=== PATIENT | male | born 2000 | race Two or more races ===

== ENCOUNTER 2019-08-28 10:04 | Emergency (ER) | payer OTHER ==
[~2019-08-28] VITALS: Ht 175.3 cm; Wt 56.7 kg
[2019-08-28] MEDS ORDERED: Tetanus/Diptheria/Pertussis IM ONE (10:15)
[2019-08-28 10:18] VITALS: BP 115/76
--- NOTE | 2019-08-28 10:19 | Emergency Room Report ---
History of Present Illness General Chief Complaint: Laceration Source: Patient Present Illness HPI Disclaimer: Please note that this report is being documented using [employer] technology. This can lead to erroneous entry secondary to incorrect interpretation by the dictating instrument. HPI: 19-year-old [id number] male presents for evaluation of laceration to the left thumb. 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 Sustained a superficial laceration to the radial aspect of the left thumb. Able to flex and extend the digit. No other trauma sustained. Unknown last tetanus. Bleeding was stopped by applying pressure bandages. Denies any changes in sensation. Denies significant pain at this time. Did not take any medication prior to arrival. PMH: Denies PSH: Denies Allergies: Denies Social Hx: Denies Allergies: Coded Allergies: No Known Allergies (Unverified , 08/28/19) Nursing Documentation-PMH Past Medical History: No Stated History Review of Systems All Other Systems: negative except mentioned in HPI Physical Exam Vital Signs Date Time Temp Pulse Resp B/P (MAP) Pulse Ox O2 Delivery O2 Flow Rate FiO2 08/28/19 10:08 98.2 61 16 115/76 (89) 99 Room Air General: Awake and alert, no acute distress HEENT: NC/AT. EOMI. Resp: Normal work of breathing Skin: 1.5 cm linear laceration over the radial aspect of the left thumb. Superficial, clean, no debris. Hemostatic. MSK: Normal tone and bulk. Moving all extremities. No obvious deformity. Able to flex and extend the digits on the left hand without limitation. Neuro: Awake and alert. Mentating appropriately. Sensation intact over the radial and ulnar aspect of all digits on the left hand. Procedures Laceration/Wound Repair Laceration/Wound Repair : Consent: Verbal Wound Location: upper extremity - Left thumb Wound's Depth, Shape: superficial Wound Length (cm): 1 Wound Explored: clean Wound Debrided: None Wound Repaired With: Dermabond Sterile Dressing Applied?: Yes Patient Tolerated: Well Medical Decision Making Diagnostic Impression: Primary Impression: Finger laceration ER Course 19-year-old [id number] male presents for evaluation of a superficial finger laceration sustained while cooking over the left thumb. Patient is neurovascularly intact. Full range of motion. The superficial laceration was cleaned with soap and water and copiously irrigated in the emergency department. It was approximated and closed with Dermabond. He can return to full duties. We will follow-up with PMD next week. Discussed signs of infection and reasons to return to the emergency department. Understands and agrees with the treatment plan will be discharged home. Last Vital Signs Date Time Temp Pulse Resp B/P (MAP) Pulse Ox O2 Delivery O2 Flow Rate FiO2 08/28/19 10:08 98.2 61 16 115/76 (89) 99 Room Air Disposition: HOME, SELF-CARE Condition: Stable Scripts No Active Prescriptions or Reported Meds Yo Brown MD Aug 28, 2019 10:19
[2019-08-28 11:00] VITALS: BP 115/76
== END 2019-08-28 11:00 | disposition home or self-care (01) ==
LOC: EMR 10:46
DX: S61.012A Laceration without foreign body of left thumb without damage to nail, initial encounter (principal); Z23 Encounter for immunization; W26.0XXA Contact with knife, initial encounter; Y92.9 Unspecified place or not applicable; Y99.0 Civilian activity done for income or pay
CPT/HCPCS: 90471; 90715; 99282